=== PATIENT | male | born 1990 | race Caucasian/White ===

== ENCOUNTER 2020-11-04 20:30 | Emergency (ER) | payer OTHER | END 2020-11-04 22:00 | disposition left against medical advice (07) | LOC: ER1 20:30 | DX: R00.2 Palpitations (principal); Z53.21 Procedure and treatment not carried out due to patient leaving prior to being seen by health care provider ==

== ENCOUNTER 2020-12-21 21:14 | Emergency (ER) | payer OTHER ==
[2020-12-22 01:27] LABS: HEMOGLOBIN 16.1 gm/dl (14.0-17.5); RED BLOOD COUNT 5.59 M/UL (4.20-5.50); WHITE BLOOD COUNT 7.9 K/UL (4.5-11.0)
[2020-12-22 01:40] LABS: BUN/CREATININE RATIO 12 (0-10)
== END 2020-12-22 07:02 | disposition home or self-care (01) ==
LOC: ER1 21:14
PROVIDERS: Emergency Medicine
DX: F33.8 Other recurrent depressive disorders (principal); Z20.822 Contact with and (suspected) exposure to COVID-19; I10 Essential (primary) hypertension
CPT/HCPCS: 71046; 80053; 80307; 81001; 82550; 82553; 83690; 84484; 85025; 99284; G0480; U0002

== ENCOUNTER 2020-12-25 12:50 | Emergency (ER) | payer OTHER | END 2020-12-25 17:40 | disposition home or self-care (01) | LOC: ER1 12:50 | DX: J06.9 Acute upper respiratory infection, unspecified (principal); Z20.822 Contact with and (suspected) exposure to COVID-19 | CPT/HCPCS: 0240U; 71045; 87081; 87880; 99283 ==